=== PATIENT | male | born 1955 | race Caucasian/White ===

== ENCOUNTER 2019-10-19 22:55 | Inpatient (IN) | payer MEDICARE ==
[~2019-10-19] VITALS: Ht 170.1 cm; Wt 99.6 kg
[2019-10-19 22:57] VITALS: BP 166/89
[2019-10-19] MEDS ORDERED: KAPSPARGO SPRIN25 MG PO (23:02)
[2019-10-19 23:54] LABS: BASO % 0.2 % (0.0-1.0); EOS # 0.1 10*3/uL (0.0-0.4); EOS % 0.7 % (1.0-4.0); HEMATOCRIT 41.7 % (42.0-52.0); HEMOGLOBIN 14.3 g/dl (14.0-18.0); LYMPH # 1.9 10*3/uL (1.3-4.4); MEAN CELL VOLUME 97.9 fl (80.0-94.0); MEAN CORPUSCULAR HGB 33.6 pg (27.0-31.0); MEAN CORPUSCULAR HGB CONC 34.3 g/dl (33.0-37.0); MEAN PLATELET VOLUME 10.6 fl (9.6-12.3); MONO # 1.1 10*3/uL (0.1-1.0); NEUT # 9.2 10*3/uL (2.3-7.9); NEUT % 74.8 % (47.0-73.0); PLATELET COUNT AUTOMATED 244 10*3/uL (130-400); RED BLOOD COUNT 4.26 10*6/uL (4.50-5.90); RED CELL DISTRI WIDTH 13.6 % (0-14.5); WHITE BLOOD COUNT 12.3 10*3/uL (4.8-10.8)
[2019-10-20 00:10] LABS: BUN 11 mg/dl (7-24); CHLORIDE 107 mmol/L (98-107); CREATININE 0.97 mg/dL (0.70-1.30); SODIUM 139 mmol/L (136-145); URIC ACID 3.6 mg/dL (3.5-7.2)
--- NOTE | 2019-10-20 01:25 | NUR ---
PT DENIES ANY OPEN WOUNDS SORES OR CUTS AT THIS TIME.
--- NOTE | 2019-10-20 01:31 | NUR ---
PHOTO TAKEN OF PT RIGHT HAND CELLULITIS.
[2019-10-20 01:55] VITALS: BP 138/79
--- NOTE | 2019-10-20 01:55 | NUR ---
Time: 154 A 64 year old MALE admitted to 4E under services of DEIDRE DECKER DO. Pt. arrived via wheel chair from ER. Chief complaint: CELLULITIS. XOCHITL KARIMI
--- NOTE | 2019-10-20 02:00 | NUR ---
INFUSION OF PIPERCILLIN COMPLETED.PT TO CT AND THEN TO UNIT.
[2019-10-20] MEDS ORDERED: COLCHICINE0.6 M1 PO (02:13)
[2019-10-20] MEDS ORDERED: LOPRESSOR25 MG PO (02:13)
[2019-10-20] MEDS ORDERED: ALLOPURINOL300 MG PO (02:14)
--- NOTE | 2019-10-20 02:29 | NUR ---
INFORMED THAT PATIENTS HOME MEDS ARE VERIFIED
[2019-10-20] MEDS ORDERED: TRAZODONE HCL300 MG PO (03:27)
[2019-10-20] MEDS ORDERED: NEURONTIN300 MG PO (03:27)
--- NOTE | 2019-10-20 03:32 | NUR ---
INFORMED THAT PATIENT FORGOT TO INCLUDE GABAPENTIN AND TRAZADONE TO HOME MEDS. PATIENT CONFIRMED THAT HE TAKE TRAZADONE 150MG 2 TABLETS AT NIGHT FOR TOTAL OF 300MG
--- NOTE | 2019-10-20 04:00 | NUR ---
PATIENT SLEEPING, EYES CLOSED. NO DISTRESS NOTED.
[2019-10-20 06:31] LABS: BASO % 0.4 % (0.0-1.0); EOS # 0.2 10*3/uL (0.0-0.4); EOS % 1.6 % (1.0-4.0); HEMATOCRIT 39.3 % (42.0-52.0); HEMOGLOBIN 13.3 g/dl (14.0-18.0); LYMPH # 1.6 10*3/uL (1.3-4.4); LYMPH % 14.7 % (27.0-41.0); MEAN CELL VOLUME 98.3 fl (80.0-94.0); MEAN CORPUSCULAR HGB 33.3 pg (27.0-31.0); MEAN CORPUSCULAR HGB CONC 33.8 g/dl (33.0-37.0); MEAN PLATELET VOLUME 10.6 fl (9.6-12.3); MONO # 1.2 10*3/uL (0.1-1.0); MONO % 11.6 % (3.0-9.0); NEUT # 7.5 10*3/uL (2.3-7.9); NEUT % 71.1 % (47.0-73.0); PLATELET COUNT AUTOMATED 231 10*3/uL (130-400); RED CELL DISTRI WIDTH 13.6 % (0-14.5); WHITE BLOOD COUNT 10.6 10*3/uL (4.8-10.8)
[2019-10-20 06:44] LABS: BUN 10 mg/dl (7-24); CHLORIDE 110 mmol/L (98-107); PHOSPHOROUS 2.8 mg/dL (2.5-4.9); SODIUM 141 mmol/L (136-145)
[2019-10-20 08:00] VITALS: BP 155/80
--- NOTE | 2019-10-20 11:19 | NUR ---
PT PULLED IV IN LEFT HAND OUT, NEW IV STARTED, LEFT ARM ON SECOND ATTEMPT. #20, GOOD BLOOD RETURN, TOLERATED WELL.
[2019-10-20 12:00] VITALS: BP 128/79
--- NOTE | 2019-10-20 13:47 | NUR ---
PT HAS NO NEEDS STATED AT THIS TIME
[2019-10-20 16:00] VITALS: BP 134/74
--- NOTE | 2019-10-20 16:44 | NUR ---
PT STATES PAIN 7/10 RIGHT HAND, NORCO GIVEN.
[2019-10-20 20:00] VITALS: BP 129/76
--- NOTE | 2019-10-20 20:00 | NUR ---
Patient resting quietly, C/O MILD discomfort TO RIGHT HAND, PATIENT RECIEVES KAJAL NORCO. Respirations easy and regular. Vital signs stable. No overt distress. CALL LIGHT WITHIN REACH XOCHITL KARIMI
[2019-10-21] VITALS: BP 121/72
[2019-10-21 06:38] LABS: BASO % 0.4 % (0.0-1.0); EOS # 0.3 10*3/uL (0.0-0.4); EOS % 2.6 % (1.0-4.0); HEMATOCRIT 38.3 % (42.0-52.0); LYMPH # 2.3 10*3/uL (1.3-4.4); LYMPH % 23.4 % (27.0-41.0); MEAN CELL VOLUME 98.5 fl (80.0-94.0); MEAN CORPUSCULAR HGB 33.4 pg (27.0-31.0); MEAN CORPUSCULAR HGB CONC 33.9 g/dl (33.0-37.0); MEAN PLATELET VOLUME 10.4 fl (9.6-12.3); MONO # 1.1 10*3/uL (0.1-1.0); MONO % 11.3 % (3.0-9.0); NEUT % 61.9 % (47.0-73.0); PLATELET COUNT AUTOMATED 220 10*3/uL (130-400); RED BLOOD COUNT 3.89 10*6/uL (4.50-5.90); RED CELL DISTRI WIDTH 13.6 % (0-14.5); WHITE BLOOD COUNT 9.7 10*3/uL (4.8-10.8)
[2019-10-21 07:09] LABS: BUN 12 mg/dl (7-24); CHLORIDE 109 mmol/L (98-107); CREATININE 1.05 mg/dL (0.70-1.30); POTASSIUM 3.9 mmol/L (3.5-5.1); SODIUM 141 mmol/L (136-145)
[2019-10-21 08:00] VITALS: BP 136/82
--- NOTE | 2019-10-21 08:48 | NUR ---
SCHEDULED NORCO GIVEN FOR HAND PAIN, PT STATES HAND PAIN SLIGHTLY BETTER. AT THIS TIME05/09. PATIENTS HAND LESS RED THAN YESTERDAY, REDNESS IS LESS THAN AREA MARKED. PT ABLE TO BEND 4TH AND 5TH FINGERS NORMAL, SWELLING CONTINUES WITH POINTER FINGER AND DORSAL SURFACE OF RIGHT HAND. NO OPEN AREAS NOTED.
[2019-10-21 12:00] VITALS: BP 140/86
[2019-10-21 16:00] VITALS: BP 168/96
--- NOTE | 2019-10-21 17:33 | NUR ---
PT COMPLAINS OF PAIN IN HAND, UNRELIEVED BY NORCO. MORPHINE GIVEN
--- NOTE | 2019-10-21 18:05 | NUR ---
PT STATES MORPHINE EFFECTIVE
[2019-10-21 20:00] VITALS: BP 151/83
--- NOTE | 2019-10-21 21:05 | NUR ---
SCHEDULED PO NORCO GIVEN FOR C/O R HAND PAIN RATED 8/10. WILL MONITOR EFFECTIVENESS.
[2019-10-22] VITALS: BP 114/67
--- NOTE | 2019-10-22 03:40 | NUR ---
24 HR chart check completed.
--- NOTE | 2019-10-22 05:21 | NUR ---
Hep Lock discontinued L HAND. Site symptomatic. PULLED OUT. Pressure applied. Sterile dressing applied. XOCHITL KARIMI
--- NOTE | 2019-10-22 05:22 | NUR ---
IV started right antecubital with #22 protective cath after 2 attempts. Site prepped with Chloroprep. Sterile dressing applied. Patient tolerated procedure well. XOCHITL KARIMI
--- NOTE | 2019-10-22 07:25 | NUR ---
Please refer to the physician's history and physical for past medical history, comorbid conditions, and allergies. Diagnosis: CELLULITIS OF R HAND Alex Score: 23,LOW OR NO RISK WOUND DESCRIPTIONS: Wound Number: 1 Right dorsal aspect of hand. Red and warm to touch at time of assessment. Pt stated this started on October 14 and went to the walk in clinic. Patient stated that it wasn't resolving and came here. No open areas at time of assessment. No drainage at time of assessment. Patient stated this is improving slowly. Edema noted to middle finger and right index finger. Surface the patient is resting on: Position Pro SKIN PREVENTION RECOMMENDATION: 1. Pressure redistribution support surface as appropriate 2. Elevate heels 3. Remove boots/TEDS every shift and reapply 4. Head of bed 30 degrees as tolerated 5. Assess nutrition and hydration 6. Manage moisture 7. Avoid the use of containment devices while in bed 8. Use absorptive products on surfaces limit layers of linens on bed 9. Turn and reposition every 1-2 hours in bed and every 1 hour in chair as tolerated 10. Weight shifts every 15 minutes while up in chair 11. Offloading with pillows or device to keep heels elevated off bed 12. Monitor skin at least every shift 13. Inspect under medical devices twice a day WOUND TREATMENT RECOMMENDATIONS: Would not recommend follow up in outpatient center since there is no open area at time of assessment.
[2019-10-22 08:00] VITALS: BP 140/80
[2019-10-22] MEDS ORDERED: SEPTDS PO (08:12)
--- NOTE | 2019-10-22 09:00 | NUR ---
[employer] in to talk to patient. Patient states lives at home with alone. There are few steps in the home. Physician: out of state Pharmacy: out of state Home health services: none Patient's level of ADLs: INDEPENDENT Patient has working utilities: all working DME: none Follow-up physician's appointment after d/c: patient stated he would follow up with his doctor when he return home to [place], he stated he follows up with the [place] [facility] and doctors Does patient want to access PORTAL?: no Discharge plan discussed with patient, he lives at home alone, he states he is independent in adls and ambulation, he states he lives in [place] and drove to visit his mom and has been in this area visiting his uncle when he became sick, he stated his son flew here from [place] and will be driving back with him, patient denies any home needs at this time. MARCOS RILEY
--- NOTE | 2019-10-22 10:15 | NUR ---
PATIENT REFUSED PHOTOGRAPHY OF RIGHT HAND CELLULITIS, HIS RIDE IS HERE.
--- NOTE | 2019-10-22 10:20 | NUR ---
Discharge instructions reviewed with patient/family. Patient receptive and verbalizes understanding. Follow-up care arranged. Written instructions given to patient/family. PATIENT DISCHARGED TO [facility], AMBULATORY, FOR TRANSPORT TO [facility] (VISITING) BY PRIVATE CAR. CHARLINE MOLINA
== END 2019-10-22 10:20 | disposition home or self-care (01) | DRG 603 ==
LOC: ED 22:55 → 4E 10-20 01:02 → EDHOLD 10-20 01:02 → 4E 10-20 01:22
PROVIDERS: Emergency Medicine Emergency Medical Services; Internal Medicine; Student in an Organized Health Care Education/Training Program; ADMIT Internal Medicine
DX: L03.113 Cellulitis of right upper limb (principal); D72.829 Elevated white blood cell count, unspecified; D72.810 Lymphocytopenia; I10 Essential (primary) hypertension; M1A.9XX0 Chronic gout, unspecified, without tophus (tophi); E78.5 Hyperlipidemia, unspecified; F51.01 Primary insomnia; D53.9 Nutritional anemia, unspecified; E87.8 Other disorders of electrolyte and fluid balance, not elsewhere classified; E55.9 Vitamin D deficiency, unspecified; R73.9 Hyperglycemia, unspecified; Z82.61 Family history of arthritis; Z82.49 Family history of ischemic heart disease and other diseases of the circulatory system; Z79.899 Other long term (current) drug therapy

== ENCOUNTER 2020-05-19 12:01 | Emergency (ER) | payer MEDICARE, OTHER ==
[~2020-05-19] VITALS: Ht 170.1 cm; Wt 93.0 kg
[~2020-05-19 12:01] MED LIST: ALLOPURINOL300 MG PO; COLCHICINE0.6 M1 PO; KAPSPARGO SPRIN25 MG PO; LOPRESSOR25 MG PO; NEURONTIN300 MG PO; SEPTDS PO; TRAZODONE HCL300 MG PO
[2020-05-19 12:58] LABS: HEMATOCRIT 38.8 % (42.0-52.0); MEAN CELL VOLUME 86.6 fl (80.0-94.0); MEAN CORPUSCULAR HGB 26.8 pg (27.0-31.0); MEAN CORPUSCULAR HGB CONC 30.9 g/dl (33.0-37.0); PLATELET COUNT AUTOMATED 219 10*3/uL (130-400); RED BLOOD COUNT 4.48 10*6/uL (4.50-5.90); WHITE BLOOD COUNT 11.2 10*3/uL (4.8-10.8)
[2020-05-19 13:13] LABS: ALBUMIN 3.3 gm/dl (3.1-4.5); ALKALINE PHOSPHATASE 112 U/L (45-117); BUN 13 mg/dl (7-24); CHLORIDE 105 mmol/L (98-107); CREATININE 0.95 mg/dL (0.70-1.30); POTASSIUM 3.6 mmol/L (3.5-5.1); SGOT/AST 13 IU/L (3-35); SGPT/ALT 16 U/L (12-78); SODIUM 137 mmol/L (136-145); TOTAL PROTEIN 6.8 gm/dL (6.4-8.2); URIC ACID 2.5 mg/dL (3.5-7.2)
[2020-05-19 13:18] LABS: PLATELET SUFFICIENCY NORMAL (NORMAL); POLYCHROMASIA SLIGHT; TOTAL CELLS COUNTED 100 #CELLS
[2020-05-19] MEDS ORDERED: NAPROSYN500 MG PO (13:52)
[2020-05-19] MEDS ORDERED: PREDNISONE20 M1 PO (13:52)
== END 2020-05-19 13:56 | disposition home or self-care (01) ==
LOC: ED 12:01
PROVIDERS: Nurse Practitioner Family
DX: M25.561 Pain in right knee (principal); R60.0 Localized edema; M10.9 Gout, unspecified; I10 Essential (primary) hypertension; F17.200 Nicotine dependence, unspecified, uncomplicated; Z79.899 Other long term (current) drug therapy; Z86.718 Personal history of other venous thrombosis and embolism

== ENCOUNTER 2021-09-30 12:13 | Emergency (ER) | payer OTHER, MEDICARE ==
[~2021-09-30] VITALS: Ht 167.6 cm; Wt 102.1 kg
[~2021-09-30 12:13] MED LIST changes: +NAPROSYN500 MG PO; +PREDNISONE20 M1 PO
[2021-09-30 15:08] LABS: BASO % 0.5 % (0.0-1.0); EOS # 0.3 10*3/uL (0.0-0.4); EOS % 3.6 % (1.0-4.0); HEMATOCRIT 43.9 % (42.0-52.0); LYMPH # 2.3 10*3/uL (1.3-4.4); LYMPH % 26.2 % (27.0-41.0); MEAN CELL VOLUME 99.3 fl (80.0-94.0); MEAN CORPUSCULAR HGB 33.9 pg (27.0-31.0); MEAN CORPUSCULAR HGB CONC 34.2 g/dl (33.0-37.0); MEAN PLATELET VOLUME 9.8 fl (9.6-12.3); MONO # 0.9 10*3/uL (0.1-1.0); MONO % 9.8 % (3.0-9.0); NEUT # 5.2 10*3/uL (2.3-7.9); NEUT % 59.6 % (47.0-73.0); PLATELET COUNT AUTOMATED 230 10*3/uL (130-400); RED BLOOD COUNT 4.42 10*6/uL (4.50-5.90); RED CELL DISTRI WIDTH 13.3 % (0-14.5); WHITE BLOOD COUNT 8.6 10*3/uL (4.8-10.8)
[2021-09-30 15:23] LABS: ALBUMIN 3.6 gm/dl (3.1-4.5); ALKALINE PHOSPHATASE 110 U/L (45-117); BUN 20 mg/dl (7-24); CHLORIDE 110 mmol/L (98-107); CREATININE 0.94 mg/dL (0.70-1.30); POTASSIUM 4.3 mmol/L (3.5-5.1); SGOT/AST 28 IU/L (3-35); SGPT/ALT 37 U/L (12-78); SODIUM 142 mmol/L (136-145)
[2021-09-30] MEDS ORDERED: CEPHALEXIN500 M1 PO (16:33)
== END 2021-09-30 16:41 | disposition home or self-care (01) ==
LOC: ED 12:13
PROVIDERS: Physician Assistant
DX: S80.12XA Contusion of left lower leg, initial encounter (principal); W18.39XA Other fall on same level, initial encounter; Y93.89 Activity, other specified; Y92.89 Other specified places as the place of occurrence of the external cause; Y99.8 Other external cause status

== ENCOUNTER → 2022-06-02 | Outpatient (CLI) | payer MEDICARE, OTHER ==
[~2022-06-02] MED LIST changes: +CEPHALEXIN500 M1 PO
== END | disposition home or self-care (01) ==
LOC: RAD 09:47
PROVIDERS: ATTEND Chiropractor
DX: S23.41XA Sprain of ribs, initial encounter (principal); R07.89 Other chest pain; M25.78 Osteophyte, vertebrae; X58.XXXA Exposure to other specified factors, initial encounter; Y93.89 Activity, other specified; Y92.89 Other specified places as the place of occurrence of the external cause; Y99.8 Other external cause status